=== PATIENT | female | born 1995 | race African-American/Black ===

== ENCOUNTER 2020-09-03 19:54 | Emergency (ER) | payer MEDICAID ==
[~2020-09-03] VITALS: Ht 170.2 cm; Wt 56.7 kg
[~2020-09-03 19:54] MED LIST: [UNRECOGNIZED DRUG - CODE] OR
[2020-09-03 20:42] LABS: Basophils # (auto) 0.1 10 ^3/uL (0-0.2); Basophils % (auto) 0.5 % (0.0-2.0); Eosinophils # (auto) 0.1 10 ^3/uL (0-0.8); Hemoglobin 9.7 g/dL (12.2-16.2); Monocytes # (auto) 0.6 10 ^3/uL (0-1.3)
[2020-09-03 20:43] LABS: Hematocrit 31.1 % (36.0-46.0); Lymphocytes # (auto) 1.3 10 ^3/uL (0.4-5.4); Lymphocytes % (auto) 13.1 % (10.0-50.0); Mean Corpuscular Hemoglobin 20.8 pg (28.0-32.0); Mean Corpuscular Hgb Conc. 31.1 g/dL (32.0-36.0); Mean Corpuscular Volume 66.7 fL (80.0-100.0); Monocytes % (auto) 5.8 % (0.0-12.0); Neutrophils # (auto) 7.8 10 ^3/uL (1.6-8.6); Neutrophils % (auto) 79.6 % (37.0-80.0); Platelet Count (auto) 484 10^3/uL (140-450); Red Blood Cells 4.66 10^6/uL (4.0-5.20); White Blood Cell 9.8 10^3/uL (4.4-10.8)
[2020-09-03 21:00] LABS: Albumin 3.8 g/dL (3.4-5.0); Potassium 3.8 mmol/L (3.5-5.1)
[2020-09-03 21:02] LABS: BUN/Creatinine Ratio 12.7; Bilirubin, Total 0.2 mg/dL (0.2-1.0)
[2020-09-03 21:06] LABS: Urine Bacteria NONE SEEN /hpf (None Seen); Urine Blood Negative /uL (Negative); Urine Mucus FEW (None Seen); Urine Specific Gravity 1.027 (1.001-1.035); Urine WBC 2 /hpf (0 - 5)
[2020-09-04 04:07] VITALS: BP 121/74
== END 2020-09-04 04:17 | disposition home or self-care (01) ==
LOC: ER 19:57
DX: D64.9 Anemia, unspecified (principal); R42 Dizziness and giddiness; R55 Syncope and collapse; N91.1 Secondary amenorrhea; R23.2 Flushing
CPT/HCPCS: 36415; 80053; 81001; 84702; 85025